=== PATIENT | female | born 1995 | race Caucasian/White ===

== ENCOUNTER 2016-07-27 13:47 | Inpatient (IN) | payer MEDICAID ==
[~2016-07-27 13:47] MED LIST: ABILIFY5 MG PO; BIRTH CONTROL PO; IBUPROFEN800 M1 PO; MONONESSA1 EACH PO; PRENATABS RX T1 EACH PO; PROZAC20 M1 PO; RELPAX20 MG PO; RELPAX40 MG PO; TOPAMAX100 M1 PO; TYLENOL500 MG PO; ZYRTEC1010 PO
[2016-07-27] MEDS ORDERED: PRENA1 CHEW TA1.4 M1 PO (15:29)
[2016-07-27] MEDS ORDERED: SERTRALINE HCL25 M3 PO (15:30)
[2016-07-28 07:05] LABS: BASO % 0.1 % (0-2); EOS % 0.2 % (0-7); HCT-HEMATOCRIT 29.4 % (34.0-49.0); HGB-HEMOGLOBIN 9.9 gm/dl (12.0-15.5); IMMATURE GRANULOCYTES ABSOLUTE 0.03 tho/cmm (0-0.03); IMMATURE GRANULOCYTES PERCENT 0.4 % (0-0.3); LYMPH % 19.9 % (20-45); LYMPH ABSOLUTE COUNT 1.7 tho/cmm (0.8-4.5); MCH (MEAN CORPUSCULAR HGB) 27.3 pg (28.0-32.0); MCHC MEAN CORPUSCULAR HGB CONC 33.7 % (32.0-36.0); MEAN PLATELET VOLUME 11.6 cmc (9.4-12.4); MONO % 8.6 % (0-12); MONOCYTE ABSOLUTE COUNT 0.7 tho/cmm (0.0-1.2); NEUTROPHILS % 70.8 % (40-80); PLATELET COUNT 206 tho/cmm (150-450); RED BLOOD COUNT 3.63 mil/cmm (4.00-5.20); RED CELL DISTRIBUTION WIDTH 14.8 % (12.4-16.4); WHITE BLOOD COUNT 8.5 tho/cmm (4.0-10.0)
[2016-07-28 07:13] LABS: ALB/GLOB RATIO 0.4 (0.8-2.0); ALBUMIN 1.8 g/dl (3.5-5.0); BILIRUBIN,DIRECT 0.5 mg/dl (0.0-0.3); BILIRUBIN,INDIRECT 0.3 mg/dL (0.0-1.0); BILIRUBIN,TOTAL 0.8 mg/dl (0-1.5)
[2016-07-29] MEDS ORDERED: NORCO 5-325 TA1 EACH PO (12:12)
[2016-07-29] MEDS ORDERED: IBUPROFEN800 M1 PO (12:13)
== END 2016-07-29 15:10 | DRG 775 ==
LOC: LDR 13:47 → OBGE 22:25
PROVIDERS: Family Medicine; Obstetrics & Gynecology Maternal & Fetal Medicine; ADMIT Family Medicine
PROC: 10E0XZZ Delivery of Products of Conception, External Approach (ICD-10-PCS; principal; 2016-07-27)
DX: O26.613 Liver and biliary tract disorders in pregnancy, third trimester (principal); K83.1 Obstruction of bile duct; Z3A.38 38 weeks gestation of pregnancy; Z37.0 Single live birth
CPT/HCPCS: J2540; J2590